=== PATIENT | female | born 1965 | race Caucasian/White ===

== ENCOUNTER → 2023-07-05 11:05 | Outpatient (BNVA) | payer OTHER, SELFPAY | PROVIDERS: PCP Family Medicine; Visit Provider Family Medicine | DX: J02.0 Streptococcal pharyngitis (principal); F41.9 Anxiety disorder, unspecified; K58.9 Irritable bowel syndrome, unspecified | CPT/HCPCS: 80053; 85025; 87071; 87880 ==

== ENCOUNTER 2023-08-24 19:03 | Emergency (ER) | payer OTHER, SELFPAY ==
[2023-08-24 19:05] VITALS: BP 181/91; PULSE 70; RESP 17; TEMP 36.9; O2SAT 97; BMI 30.4
--- NOTE | 2023-08-24 19:15 | ED_ITS ---
HPI - Wound/Laceration General: Chief Complaint: Wound/Laceration Stated Complaint: cut on head Time Seen by Provider: 08/24/23 19:04 Source: patient Mode of arrival: ambulatory Limitations: no limitations History of Present Illness: 58-year-old female states she had called under quilting machine and she had stood up and hit her head she does have a 2 similar laceration to her scalp. States this is happened prior arrival she denies any loss conscious denies any headache she states her last tetanus was 2 years ago denies any neck pain. Associated symptoms: Denies chills, fever(s), nausea or vomiting Review of Systems Const: Denies: fever(s), chills, body aches or change in appetite ENMT: Denies: throat pain or dental pain Card: Denies: chest pain Resp: Denies: dyspnea GI: Denies: abdominal pain, nausea, vomiting or diarrhea Musc: Denies: neck pain or back pain Skin/Breast: Denies: rash Neuro: Denies: headache(s) PFSH ED PFSH: Medical History Anxiety Irritable colon syndrome Recurrent streptococcal pharyngitis Physical Exam Const: COMMON NORMALS: no acute distress and patient oriented x3 HENMT: OTHER: 2 cm laceration to the top of the scalp Eye: COMMON NORMALS: conjunctivae normal CONJUNCTIVA: Yes conjunctivae normal Neck/C-Spine: COMMON NORMALS: supple Chest: COMMONS NORMALS: normal inspection of the chest Resp: COMMON NORMALS: normal respiratory effort Cardio: COMMON NORMALS: regular rate RATE: regular rate Extremity: COMMON NORMALS: normal to inspection Neuro: COMMON NORMALS: patient oriented x3 Psych: COMMON NORMALS: mental status grossly normal Skin: COMMON NORMALS: no rashes or lesions noted GENERAL SKIN EXAM: no rashes or lesions noted Procedures Laceration Laceration 1: Site: scalp Size (cm): 2 Description: linear Depth: simple, single layer Local Anesthetic: lidocaine 1% Amount of anesthesia used (mL): 5 Pre-repair: wound explored and irrigated extensively Skin layer closed with: other (aram) Course Vital Signs: Vital signs: Vital Signs Temperature 98.4 F 08/24/23 19:05 Pulse Rate 70 08/24/23 19:05 Respiratory Rate 17 08/24/23 19:05 Blood Pressure 181/91 08/24/23 19:05 Pulse Oximetry 97 08/24/23 19:05 Oxygen Delivery Me thod Room Air 08/24/23 19:05 MDM - Wound/Laceration Medical Decision Making Patient presents here with head laceration she has no headache no loss conscious alert require head CT did place aram she is to have aram removed in 1 week. Medical Records I reviewed the patient's medical records. No radiology studies performed this visit Discharge Plan Discharge Patient Disposition: Home Clinical Impression: Laceration of head Condition: Stable Prescriptions: No Action escitalopram oxalate 10 mg tablet 10 mg PO DAILY Qty: 90 2RF cholestyramine-aspartame [Cholestyramine Light] 4 gram powder in packet See Rx Instructions .ROUTE .COMPLEX Qty: 90 0RF Dose Instruction: TAKE 4G BY MOUTH DAILY WITH A MEAL FOR ADNORMAL BOWEL ACTIVITY; AVOID OTHER MEDS WITHIN 1 HOUR BEFORE OR 4-6 HOURS AFTER DOSE Rx Instructions: TAKE 4G BY MOUTH DAILY WITH A MEAL FOR ADNORMAL BOWEL ACTIVITY; AVOID OTHER MEDS WITHIN 1 HOUR BEFORE OR 4-6 HOURS AFTER DOSE Discharge Orders: Discharge ED (Routine); Ordered 08/24/23 Ordered By: Joe Glez Referrals: Dario Martinez MD [Primary Care Provider] - 4-7 days Discharge Diet: Advance as tolerated Discharge Activity: Resume usual activity Patient Instructions: Staple Care (ED), Head Laceration (ED) Activity Restrictions/Additional Instructions: staple removal in 7 days 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
[2023-08-24 19:32] VITALS: BP 147/82; PULSE 63; RESP 18; O2SAT 98
== END 2023-08-24 19:35 | disposition home or self-care (01) ==
PROVIDERS: Emergency Provider Emergency Medicine; PCP Family Medicine
DX: S01.02XA Laceration with foreign body of scalp, initial encounter (principal); W22.8XXA Striking against or struck by other objects, initial encounter
CPT/HCPCS: 12001; 99282

== ENCOUNTER 2023-08-31 10:08 | Outpatient (CLI) | payer OTHER, SELFPAY ==
--- NOTE | 2023-08-31 10:15 | MM_ITS ---
WS: [id number] BILATERAL SCREENING DIGITAL TOMOSYNTHESIS MAMMOGRAM WITH CAD HISTORY: Z00.00 - Encounter for general adult medical examination ... COMPARISON: None available. Bilateral CC and MLO views with tomosynthesis and synthetic mammography submitted. Computer aided det ection analyzed. Breast composition: There are scattered areas of fibroglandular density. No suspicious masses, microc alcifications or architectural distortion. Biopsy clip central LEFT breast. IMPRESSION: MM/[place] [id number] BI-RADS: 2-Benign FOLLOW UP: 1 Year Follow-up
== END 2023-08-31 10:09 | disposition home or self-care (01) ==
LOC: MOBLMAM 10:11
PROVIDERS: PCP Family Medicine; Visit Provider Family Medicine
DX: Z12.31 Encounter for screening mammogram for malignant neoplasm of breast (principal)
CPT/HCPCS: 77063; 77067

== ENCOUNTER 2023-11-09 12:35 | Outpatient (CLI) | payer OTHER, SELFPAY | END 2023-11-09 12:36 | disposition home or self-care (01) | LOC: RAD 12:35 | PROVIDERS: PCP Family Medicine; Visit Provider Family Medicine | DX: M25.552 Pain in left hip (principal) | CPT/HCPCS: 73502 ==

== ENCOUNTER 2024-01-24 05:35 | Emergency (ER) | payer OTHER, SELFPAY ==
--- NOTE | 2024-01-24 05:42 | XRR_ITS ---
PROCEDURE INFORMATION: Exam: XR Right Hip Exam date and time: 01/24/2024 5:57 AM Age: 58 years old Clinical indication: Right hip; Patient HX: Nki, posterior hip pain. No history of recent trauma or surgery is provided. TECHNIQUE: Imaging protocol: Radiologic exam of the right hip. 6image(s) are provided. Views: 1 view hip with pelvis when performed. COMPARISON: 1. No relevant prior right hip studies are currently available. 2. CR XR hip LT 2-3V wo/w pel* [id number] 11/09/2023 12:48 PM FINDINGS: Bones/joints: Osseous alignment is maintained. No interval displaced fracture or dislocation is appreciated. Symmetric appearance of the sacral arcuate lines and sacroiliac junctions are appreciated. There is some degenerative appearance of the lumbosacral junction. There is some degenerative changes of the trochanters. There is some acetabular rim and subcapital spurring demonstrated bilaterally more so on the right. Soft tissues: No radiopaque foreign body or subcutaneous emphysema is appreciated. Other findings: No other significant interval changes are appreciated. XR/XR hip RT 2-3V wo/w pel* [id number] IMPRESSION: Osseous alignment is maintained with some moderate degenerative appearance overall of the hips right more so than left. This includes some bulky acetabular rim and subcapital spurring. If there are persistent clinical symptoms or limited range of motion then consider MRI hip arthrogram.
[2024-01-24 05:43] VITALS: BP 138/84; PULSE 66; RESP 16; TEMP 36.5; O2SAT 97
--- NOTE | 2024-01-24 05:45 | W.ED.EXTPRO ---
HPI - Extremity Problem General: Chief complaint: Extremity Injury, Lower Stated complaint: Right side hip pain Time Seen by Provider: 01/24/24 05:41 Source: patient Mode of arrival: ambulatory History of Present Illness: 58-year-old female presents emergency room complaining of atraumatic right hip pain. She has sharp pain in her right hip that woke her up from sleep. She had been sitting on a stool yesterday with her right leg extended to operate a foot pedal on a sewing machine. Otherwise no other unusual activity. No trauma. She does have some osteoarthritis in the past has had issues with her left hip in the past but that is pain-free at this time. MD Complaint: joint pain Onset (ago): hour(s) Pain Consistency: constant Location: right (hip) Quality: sharp Relieving factors: nothing Exacerbating factors: range of motion, weight bearing and palpation Associated symptoms: Deny arthralgias, chest pain, fever(s), myalgias, rash or short of breath Review of Systems Const: Denies: fever(s) or chills Card: Denies: chest pain Resp: Denies: dyspnea GI: Denies: abdominal pain : Denies: dysuria, urinary frequency or urinary urgency Musc: Denies: neck pain or back pain Skin/Breast: Denies: rash PFSH ED PFSH: Medical History Irritable colon syndrome Anxiety Recurrent streptococcal pharyngitis Physical Exam Const: COMMON NORMALS: no acute distress GENERAL APPEARANCE: cooperative and comfortable ORIENTATION/CONSCIOUSNESS: Yes awake, Yes oriented to person, Yes oriented to place and Yes oriented to time HENMT: COMMON NORMALS: normocephalic, atraumatic and hearing grossly normal bilaterally HEAD & SCALP: normocephalic and atraumatic Resp: COMMON NORMALS: normal respiratory effort, No retractions, No use of accessory muscles and clear to auscultation bilaterally AUSCULTATION: clear to auscultation bilaterally Cardio: COMMON NORMALS: regular rate, regular rhythm and No murmurs present (Cardio) RATE: regular rate RHYTHM: regular rhythm GI: COMMON NORMALS: Soft to palpation and No hepatosplenomegaly present AUSCULTATION: Yes normoactive bowel sounds PALPATION: Yes Soft to palpation, No Tenderness to palpation present (GI), No Guarding due to palpation present (GI) and Yes No hepatosplenomegaly present Extremity: COMMON NORMALS: normal to inspection, capillary refill normal, no clubbing, cyanosis or edema, no calf tenderness and no pedal edema Neuro: SENSORIUM/ORIENTATION: Yes oriented to person, Yes oriented to place and Yes oriented to time Skin: COMMON NORMALS: no rashes or lesions noted GENERAL SKIN EXAM: no rashes or lesions noted Course Vital Signs: Vital signs: Vital Signs Temperature 97.7 F 01/24/24 05:43 Pulse Rate 69 01/24/24 06:42 Respiratory Rate 16 01/24/24 06:42 Blood Pressure 138/84 01/24/24 05:43 Pulse Oximetry 97 01/24/24 06:42 Oxygen Delivery Me thod Room Air 01/24/24 05:43 MDM - Extremity (Nontraumatic) Medical Decision Making Patient presents with complaint of hip pain more localizes to the SI joint no obvious deformity can perform a full range of motion at the hip with flexion extension internal/external rotation with minimal discomfort. She did take Tylenol ibuprofen for arriving it seems to help. Patient will be discharged home with diclofenac to use as needed follow-up with primary care if has any worsening or changes symptoms. XR interpretation done by ED provider, pending radiology final review Discharge Plan Discharge Patient Disposition: Home Clinical Impression: Sacro-iliac pain Condition: Stable Prescriptions: New diclofenac sodium 75 mg tablet,delayed release (DR/EC) 75 mg PO Q12H PRN (Reason: pain) Qty: 20 0RF No Action escitalopram oxalate 10 mg tablet 10 mg PO DAILY Qty: 90 2RF cholestyramine-aspartame [Cholestyramine Light] 4 gram powder in packet See Rx Instructions .ROUTE .COMPLEX Qty: 90 0RF Dose Instruction: TAKE 4G BY MOUTH DAILY WITH A MEAL FOR ADNORMAL BOWEL ACTIVITY; AVOID OTHER MEDS WITHIN 1 HOUR BEFORE OR 4-6 HOURS AFTER DOSE Rx Instructions: TAKE 4G BY MOUTH DAILY WITH A MEAL FOR ADNORMAL BOWEL ACTIVITY; AVOID OTHER MEDS WITHIN 1 HOUR BEFORE OR 4-6 HOURS AFTER DOSE Discharge Orders: Discharge ED (Routine); Ordered 01/24/24 Ordered By: Shun Platt Referrals: Dario Martinez MD [Primary Care Provider] - Discharge Diet: Usual diet Discharge Activity: Resume usual activity Patient Instructions: Opioid Safety, Pain Management Activity Restrictions/Additional Instructions: Thank you for choosing [facility] for your healthcare needs today. Please realize this is an emergency room and that we are providing you with a medical screening exam and this may not be complete and all inclusive of all the testing and or work up that you may need to determine your ailment or severity of your illness. It is very important that you follow up as instructed or that you return to the Emergency Department should you have concerns or if your condition changes or worsens in any way. You are seen today for pain in the right sacroiliac region. Mostly resolved by the time you arrived here. X-ray does not show any significant abnormalities. Prescription for diclofenac to use for pain or discomfort. If you take the diclofenac do not take Aleve or ibuprofen. If symptoms persist follow-up with your primary care doctor. 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
[2024-01-24 06:42] VITALS: PULSE 69; RESP 16; O2SAT 97
== END 2024-01-24 06:26 | disposition home or self-care (01) ==
PROVIDERS: Emergency Provider Family Medicine; PCP Family Medicine
DX: M53.3 Sacrococcygeal disorders, not elsewhere classified (principal)
CPT/HCPCS: 73502; 99283

== ENCOUNTER 2024-10-03 09:00 | Outpatient (CLI) | payer OTHER, SELFPAY ==
--- NOTE | 2024-10-03 10:20 | MM_ITS ---
WS: [id number] BILATERAL SCREENING DIGITAL TOMOSYNTHESIS MAMMOGRAM WITH CAD HISTORY: SCREENING COMPARISON: 08/31/2023, Bilateral CC and MLO views with tomosynthesis and synthetic mammography submitted. Computer aided det ection analyzed. Breast composition: The breasts are heterogeneously dense, which may obscure small masses. No suspici ous masses, microcalcifications or architectural distortion. Biopsy clip 12:00 LEFT breast with adjac ent distortion. No interval change since the prior study. MM/MM scr BI tomosynthesis [id number] IMPRESSION: BI-RADS: 2 - Benign FOLLOW UP: 1 Year Follow-up
== END 2024-10-03 10:18 | disposition home or self-care (01) ==
PROVIDERS: PCP Family Medicine; Visit Provider Family Medicine
DX: Z12.31 Encounter for screening mammogram for malignant neoplasm of breast (principal)
CPT/HCPCS: 77063; 77067

== ENCOUNTER → 2025-07-09 08:52 | Outpatient (BNVA) | payer OTHER, SELFPAY | PROVIDERS: Family Provider Family Medicine; PCP Family Medicine; Visit Provider Family Medicine | DX: Z13.6 Encounter for screening for cardiovascular disorders (principal) | CPT/HCPCS: 80053; 80061; 83036; 84439; 84443; 85025 ==

== ENCOUNTER 2025-07-24 13:22 | Outpatient (RCR) | payer OTHER, SELFPAY | END 2025-08-20 23:59 | disposition home or self-care (01) | LOC: SPT 13:22 | PROVIDERS: Family Provider Family Medicine; PCP Family Medicine; Visit Provider Family Medicine | DX: H81.12 Benign paroxysmal vertigo, left ear (principal) | CPT/HCPCS: 95992; 97161 ==

== ENCOUNTER → 2025-10-28 09:11 | Outpatient (BNVA) | payer OTHER, SELFPAY | PROVIDERS: Family Provider Family Medicine; PCP Family Medicine; Visit Provider Family Medicine | DX: E11.9 Type 2 diabetes mellitus without complications (principal) | CPT/HCPCS: 80053; 83036 ==

== ENCOUNTER 2025-10-30 11:18 | Outpatient (CLI) | payer OTHER, SELFPAY ==
--- NOTE | 2025-10-30 11:40 | MM_ITS ---
WS: [id number] BILATERAL SCREENING DIGITAL TOMOSYNTHESIS MAMMOGRAM WITH CAD HISTORY: SCREENING COMPARISON: 10/03/2024, 08/31/2023 Bilateral CC and MLO views with tomosynthesis and synthetic mammography submitted. Computer aided detection analyzed. Breast composition: There are scattered areas of fibroglandular density. No suspicious masses, microcalcifications or architectural distortion. Biopsy site in the central LEFT breast with clip. Biopsy site is stable with mild distortion. No suspicious grouping of calcifications. MM/MM scr tomosynthesis [id number] IMPRESSION: BI-RADS: 2 - Benign. FOLLOW UP: 1 Year Follow-up
== END 2025-10-30 11:19 | disposition home or self-care (01) ==
LOC: MOBLMAM 11:19
PROVIDERS: Family Provider Family Medicine; PCP Family Medicine; Visit Provider Family Medicine
DX: Z12.31 Encounter for screening mammogram for malignant neoplasm of breast (principal); R92.323 Mammographic fibroglandular density, bilateral breasts; Z96.89 Presence of other specified functional implants; R92.8 Other abnormal and inconclusive findings on diagnostic imaging of breast
CPT/HCPCS: 77063; 77067